=== PATIENT | female | born 1945 | race Caucasian/White ===

== ENCOUNTER → 2017-03-25 | Outpatient (CLI) | payer MEDICARE ==
[2017-03-25] VITALS (10 sets, daily range): BP systolic 125–157; BP diastolic 73–96; PULSE 56–80
[~2017-03-25] VITALS: Ht 157.5 cm; Wt 50.4 kg
[~2017-03-25] MED LIST: ASPIRIN 32325 MG/TA1 PO; KEPPRA250 MG PO; NORCO 325 MG-51 TAB PO; PRINZIDE 25 MG-1 TAB PO; TIMOPTIC 0.25%-5 OP
== END ==
LOC: COL.RAD 12:17
DX: E27.8 Other specified disorders of adrenal gland (principal)
CPT/HCPCS: 26396; 27584

== ENCOUNTER → 2018-01-03 | Outpatient (REF) | LOC: COL.CARD 09:15 | DX: Z01.818 Encounter for other preprocedural examination (principal) ==

== ENCOUNTER → 2024-02-07 | Outpatient (CLI) | payer MEDICARE, OTHER | LOC: MHCPAIN 09:39 | DX: M41.86 Other forms of scoliosis, lumbar region (principal); M43.16 Spondylolisthesis, lumbar region; M47.816 Spondylosis without myelopathy or radiculopathy, lumbar region | CPT/HCPCS: G0463 ==

== ENCOUNTER → 2024-03-12 | Outpatient (CLI) | payer MEDICARE, OTHER | LOC: MHCPAIN 10:16 | DX: M54.50 Low back pain, unspecified (principal); M41.86 Other forms of scoliosis, lumbar region; M47.816 Spondylosis without myelopathy or radiculopathy, lumbar region; G89.29 Other chronic pain; M81.0 Age-related osteoporosis without current pathological fracture; I10 Essential (primary) hypertension | CPT/HCPCS: G0463 ==